=== PATIENT | female | born 1965 | race Caucasian/White ===

== ENCOUNTER 2020-01-08 20:13 | Emergency (ER) | payer SELFPAY ==
[2020-01-08] MEDS ORDERED: AMOXICILLIN TR/POT CLAVULANATE 875-125 MG TAB PO ONE (20:56)
[2020-01-08] MEDS ORDERED: DIPH/PERTUSS(ACELL)/TETANUS VAC/PF 0.5 ML SYR (>=10YO) IM ONE (20:56)
[2020-01-08] MEDS ORDERED: OXYCODONE-ACETAMINOPHEN 5-325 MG TABLET PO ONE ×2 (20:57→23:41)
--- NOTE | 2020-01-08 21:01 | ER Document Report ---
ED Medical Screen (RME) - General Chief Complaint: Dog Bite Stated Complaint: DOG BITES Time Seen by Provider: 01/08/20 20:52 Notes: HPI: 54-year-old female presenting for evaluation of multiple dog bites. States that her neighbor has 5 or 6 pimples and they got into her yard and attacked her tonight. Does not know if the dogs are up-to-date on vaccinations. States that she is not sure if she is up-to-date on her tetanus vaccination. Patient complains of pain from the dog bites. PHYSICAL EXAMINATION: Patient with multiple dog bites noted. Patient has superficial puncture wounds to the palmar aspects of the left and right hand. There is a superficial wound on the distal dorsal left forearm. There is a superficial wound to the left shoulder. Superficial wound to the left elbow. There is a deep wound on the right forearm near the elbow. There is a deep triangular flap type laceration over the anterior proximal right tibia I have greeted and performed a rapid initial assessment of this patient. A comprehensive ED assessment and evaluation of the patient, analysis of test results and completion of medical decision making process will be conducted by an additional ED providers. - Related Data Allergies/Adverse Reactions: No Known Allergies Allergy (Unverified 01/08/20 20:52) Physical Exam - Vital signs Vitals: Temp Pulse Resp BP Pulse Ox 98.0 F 70 18 138/98 H 100 01/08/20 20:23 01/08/20 20:23 01/08/20 20:23 01/08/20 20:23 01/08/20 20:23 Course - Vital Signs Vital signs: Temp Pulse Resp BP Pulse Ox 98.0 F 70 18 138/98 H 100 01/08/20 20:23 01/08/20 20:23 01/08/20 20:23 01/08/20 20:23 01/08/20 20:23
--- NOTE | 2020-01-08 22:10 | RADIOLOGY REPORT (SQ) ---
2 VIEWS RIGHT TIBIA/FIBULA HISTORY: Dog bite. COMPARISON: None. FINDINGS: There is focal soft tissue swelling and laceration along the anterior aspect of the proximal lower leg. No fracture or foreign body is seen. There is no cortical erosion or periosteal reaction to suggest acute osteomyelitis., IMPRESSION: Soft tissue swelling and laceration of the proximal leg but without fracture or foreign body.
--- NOTE | 2020-01-08 22:18 | RADIOLOGY REPORT (SQ) ---
EXAM DESCRIPTION: XR HAND 3 VIEWS BILATERAL COMPLETED DATE/TME: 01/08/2020 20:57 CLINICAL HISTORY: 54 years, Female, dog bite COMPARISON: None. NUMBER OF VIEWS: 6 views of both hands TECHNIQUE: Oblique, lateral, and frontal radiographs of both hands were acquired LIMITATIONS: None. FINDINGS: Mild DIP joint arthrosis is noted about the left third digit. Otherwise, remaining visualized osseous structures are normal bilaterally without underlying acute fracture or dislocation. No retained radiopaque foreign body or significant soft tissue swelling. IMPRESSION: No acute osseous anomaly or retained radiopaque foreign body. copyright 2010 [employer]- All Rights Reserved
--- NOTE | 2020-01-08 22:20 | RADIOLOGY REPORT (SQ) ---
EXAM DESCRIPTION: XR FOREARM 2 VIEWS BILATERAL COMPLETED DATE/TME: 01/08/2020 20:57 CLINICAL HISTORY: 54 years, Female, dog bite COMPARISON: None. NUMBER OF VIEWS: 4 TECHNIQUE: Frontal and lateral radiographs of both forearms were acquired. LIMITATIONS: None. FINDINGS: Diffuse soft tissue swelling and subcutaneous gas is noted about the soft tissues along the dorsal/lateral aspect of the mid to proximal forearm on the right extending into the elbow. No underlying retained radiopaque foreign body is evident. There is suspected remote deformity involving the distal humerus on the right. Remaining visualized osseous structures appear normal without acute fracture or dislocation. IMPRESSION: Diffuse soft tissue swelling about the dorsal/lateral aspect of the mid to distal forearm extending to the lateral aspect of the elbow. No underlying acute fracture or dislocation. No definite retained radiopaque foreign body. copyright 2010 [employer]- All Rights Reserved
[2020-01-08] MEDS ORDERED: LIDOCAINE 4% CREAM 5 GM TUBE TP ONE (22:31)
[2020-01-08] MEDS ORDERED: LIDOCAINE 1%/EPINEPHRINE INJ 20 ML VIAL INJ ONE (22:53)
--- NOTE | 2020-01-08 23:02 | ER Document Report ---
ED Animal Bite - General Chief Complaint: Dog Bite Stated Complaint: DOG BITES Time Seen by Provider: 01/08/20 20:52 Primary Care Provider: [facility] [Provider Group] - 01/10/20 Mode of Arrival: Ambulatory Information source: Patient Notes: Patient states that her neighbor's dog came into her yard and she was walking the dog back to its home. Patient states that another dog came out of the house and started to attack her. She states then the first dog she brought back to the neighbors house then started to attack her as well. Patient states that her dog was hanging from her right arm. Patient with multiple puncture wound lacerations to bilateral upper extremities. Patient with large puncture wound to right elbow area. Patient with laceration to anterior aspect of the right lower leg. Patient is uncertain when her last tetanus immunization was. - HPI Location of injury: LUE, RUE, RLE Severity of injury: Scratched, Bitten Onset: Just prior to arrival Quality of pain: Sharp Pain Level: 5 Context of attack: "Unprovoked" attack, Approached animal, Entered animal's domain Type of animal: Dog Animal's immunizations: Unknown Animal captured or known: Yes Animal control form completed: Yes - Related Data Allergies/Adverse Reactions: No Known Allergies Allergy (Unverified 01/08/20 20:52) Past Medical History - General Information source: Patient - Social History Smoking Status: Current Every Day Smoker Frequency of alcohol use: None Drug Abuse: None 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 denies: Chest pain Respiratory: No symptoms reported Gastrointestinal: No symptoms reported. denies: Nausea, Vomiting Genitourinary: No symptoms reported Female Genitourinary: No symptoms reported Musculoskeletal: Joint pain - Elbow pain Skin: Other - Puncture wound lacerations to bilateral upper extremities, laceration to right lower extremity Hematologic/Lymphatic: No symptoms reported Neurological/Psychological: No symptoms reported Physical Exam - Vital signs Vitals: Temp Pulse Resp BP Pulse Ox 98.0 F 70 18 138/98 H 100 01/08/20 20:23 01/08/20 20:23 01/08/20 20:23 01/08/20 20:23 01/08/20 20:23 - General General appearance: Appears well, Alert In distress: None - HEENT Head: Normocephalic, Atraumatic Eyes: Normal Conjunctiva: Normal Nasal: Normal Mouth/Lips: Normal Neck: Normal - Respiratory Respiratory status: No respiratory distress Chest status: Nontender Breath sounds: Normal. No: Rales, Rhonchi, Stridor, Wheezing Chest palpation: Normal - Cardiovascular Rhythm: Regular Heart sounds: S1 appreciated, S2 appreciated Pulses: Normal: Radial - Back Back: Normal - Extremities General upper extremity: Tender - Right elbow tenderness, tenderness to right fourth finger, Normal ROM General lower extremity: Tender - Anterior aspect of right lower leg, Normal ROM - Neurological Neuro grossly intact: Yes Orientation: AAOx4 Rafael Coma Scale Eye Opening: Spontaneous [place] Coma Scale Verbal: Oriented Rafael Coma Scale Motor: Obeys Commands [place] Coma Scale Total: 15 - Psychological Associated symptoms: Normal affect, Normal mood - Skin Skin Temperature: Warm Skin Moisture: Dry Skin irregularity: Laceration - Superficial 1 cm laceration to left shoulder, left elbow, palmar surface of left hand, 0.5 cm laceration to the right wrist, gaping 5 cm laceration to anterior right lower leg, 2 cm puncture wound lacerati on to right elbow area, patient with 2 cm circular area of avulsed tissue to lateral aspect of the right elbow., other - Subcutaneous emphysema surrounding puncture wound to the right proximal forearm Irregularity with: Swelling, Tenderness Course - Re-evaluation Re-evalutation: 01/08/20 23:[address] zimmerman regarding patient's radiology reports and plan of care. 01/09/20 00:11 Patient with gaping laceration to the anterior aspect of the lower leg, wounds were copiously irrigated and cleansed. Decision was made to loosely approximate wound and place a Brandi drain into the leg laceration using shared decision- making. Patient encouraged to return immediately for any worsening symptoms such as redness, purulent drainage, increased pain, fever or any concerning signs of infection. Patient advised that she will need to return in 48 hours for wound recheck. Patient encouraged to follow-up with orthopedics on Friday for further evaluation of her wounds. - Vital Signs Vital signs: Temp Pulse Resp BP Pulse Ox 98.0 F 70 18 138/98 H 100 01/08/20 20:23 01/08/20 20:23 01/08/20 20:23 01/08/20 20:23 01/08/20 20:23 - Diagnostic Test Radiology reviewed: Image reviewed, Reports reviewed Procedures - Laceration/Wound Repair Right Leg Wound length (cm): 5 Wound's Depth, Shape: Irregular, Flap Laceration pre-procedure: Betadine prep applied, Shur-Clens applied Anesthetic type: 1% Lidocaine w/epi Volume Anesthetic (mLs): 2 Wound explored: No foreign body removed Irrigated w/ Saline (mLs): 2,500 Wound Repaired With: Sutures Suture Size/Type: 4:0, Nylon Number of Sutures: 2 - Em[place] drain placed in wound cavity Layer Closure?: No Post-procedure wound care: Sterile dressing applied Post-procedure NV exam normal: Yes Complications: No Adult Front & Back picture: 1 - Irregular flap laceration Discharge - Discharge Clinical Impression: Multiple puncture wounds, Animal bite Leg laceration Qualifiers: Encounter type: initial encounter Laterality: right Qualified Code(s): S81.811A - Laceration without foreign body, right lower leg, initial encounter Laceration of right forearm Qualifiers: Encounter type: initial encounter Qualified Code(s): S51.811A - Laceration without foreign body of right forearm, initial encounter Condition: Stable Disposition: HOME, SELF-CARE Instructions: Animal Bites ([facility]), Augmentin ([facility]), Oral Narcotic Medication ([facility]), Prophylactic Antibiotic ([facility]), Tetanus Immunization Given ([facility]) Additional Instructions: Return immediately for any new or worsening symptoms Followup with your primary care provider, call tomorrow to make a followup appointment Return in 2 days for wound recheck. Return sooner for any worsening of symptoms such as increased pain, fever, increased swelling, redness or any concerning symptoms. Follow-up with orthopedics for further evaluation, call Friday for an appointment Follow-up with animal control regarding the immunization status of the animals. If they determined that you need to a rabies vaccination series, you would return here for that. Prescriptions: Amoxicillin/Potassium Clav [Augmentin 875-125 Tablet] 1 tab PO BID #20 tab Naproxen [Naprosyn 250 Nmg Tablet] 1 tab PO BID #14 tablet Hydrocodone/Acetaminophen [[place] 5-325 mg Tablet] 1 tab PO Q6 PRN #15 tablet PRN Reason: Forms: Return to Work Referrals: [facility] [Provider Group] - 01/10/20
[2020-01-09] MEDS ORDERED: AMOXICILLIN TR/POT CLAVULANATE 875-125 MG TAB PO ONE (00:13)
[2020-01-09] MEDS ORDERED: DIPH/PERTUSS(ACELL)/TETANUS VAC/PF 0.5 ML SYR (>=10YO) IM ONE (00:13)
[2020-01-09 02:08] VITALS: BP 148/97
== END 2020-01-09 01:15 | disposition home or self-care (01) ==
LOC: ER 20:13
DX: S81.851A Open bite, right lower leg, initial encounter (principal); S51.051A Open bite, right elbow, initial encounter; S51.851A Open bite of right forearm, initial encounter; S61.551A Open bite of right wrist, initial encounter; S40.272A Other superficial bite of left shoulder, initial encounter; S60.572A Other superficial bite of hand of left hand, initial encounter; W54.0XXA Bitten by dog, initial encounter; Y93.89 Activity, other specified; Y92.009 Unspecified place in unspecified non-institutional (private) residence as the place of occurrence of the external cause; Z23 Encounter for immunization; F17.200 Nicotine dependence, unspecified, uncomplicated
CPT/HCPCS: 99284; 90471; 73590; 73090; 73130; 90715; 12002; J3490 ×3

== ENCOUNTER 2020-01-10 19:09 | Emergency (ER) | payer SELFPAY ==
[2020-01-10] MEDS ORDERED: AMPICILLIN SOD/SULBACTAM 3 GM VIAL IV ONE (20:20)
--- NOTE | 2020-01-10 20:22 | ER Document Report ---
ED Medical Screen (RME) - General Chief Complaint: Skin Problem Stated Complaint: VOMITNG Time Seen by Provider: 01/10/20 20:06 - HPI Notes: 01/10/20 20:20 54-year-old female to the emergency department with complaints of wanting a wound check for dog bites to her right arm and right lower leg. She was bit by 2 pit bulls her neighbors 2 days ago. She states animal control can but she does not think the animals are up-to-date on their rabies vaccinations. she states that she had a drain put in her lower leg. She states that She did not get her antibiotics filled. She has started to feel nauseated and queasy. She does not think that she has had a fever. On brief medical screening exam. There are several dog bites. In the lower leg there is a dog bite with a Brandi drain. There is erythema and warmth above the dog bite to suggest cellulitis. To the right forearm there is also a streaking cellulitis to the volar/medial aspect of the arm. Is very tender to palpation. I performed a brief medical screening exam on the patient determined that the patient needs further evaluation and management by main side provider. I have placed initial orders to help expedite care. - Related Data Allergies/Adverse Reactions: No Known Allergies Allergy (Unverified 01/08/20 20:52) Home Medications: subutex, iibuprofen, amoxicillin, bp med Past Medical History - Immunizations Hx Diphtheria, Pertussis, Tetanus Vaccination: No Physical Exam - Vital signs Vitals: Temp Pulse Resp BP Pulse Ox 98.6 F 86 18 143/92 H 96 01/10/20 19:18 01/10/20 19:18 01/10/20 19:18 01/10/20 19:18 01/10/20 19:18 Course - Vital Signs Vital signs: Temp Pulse Resp BP Pulse Ox 98.6 F 86 18 143/92 H 96 01/10/20 19:18 01/10/20 19:18 01/10/20 19:18 01/10/20 19:18 01/10/20 19:18
--- NOTE | 2020-01-10 21:10 | RADIOLOGY REPORT (SQ) ---
EXAM DESCRIPTION: X-ray, two views of the right forearm CLINICAL HISTORY: 54 years Female, infected dog bites COMPARISON: None. FINDINGS: Air is seen in the soft tissues involving the distal upper arm extending into the anterior and posterior aspects of the forearm. No radiopaque foreign body. No underlying fracture. There is degenerative osteophyte formation at the elbow joint. IMPRESSION: Scattered air in the soft tissues of the distal upper arm and proximal forearm. No radiopaque foreign body. No fracture.
--- NOTE | 2020-01-10 21:23 | RADIOLOGY REPORT (SQ) ---
2 VIEWS RIGHT TIBIA/FIBULA HISTORY: Infected dog bites. COMPARISON: 01/08/2020 FINDINGS: Again seen is focal soft tissue swelling with subcutaneous air probably within the proximal soft tissues of the right leg. Overlying bandage material is noted. No foreign body or fracture. There is no cortical erosion or periosteal reaction to suggest acute osteomyelitis. IMPRESSION: Soft tissue swelling and air within the proximal right leg, which may represent deep soft tissue infection. Consider contrast-enhanced cross-sectional imaging if there is concern for intramuscular abscess or.
[2020-01-10 21:32] LABS: ABSOLUTE EOSINOPHILS # (AUTO) 0.1 10^3/uL (0.0-0.6); ABSOLUTE LYMPHOCYTES (AUTO) 1.4 10^3/uL (0.5-4.7); ABSOLUTE MONOCYTES (AUTO) 0.7 10^3/uL (0.1-1.4); ABSOLUTE NEUT (AUTO) 5.2 10^3/uL (1.7-8.2); BASOPHILS % (AUTO) 0.4 % (0-2); EOSINOPHILS % (AUTO) 0.9 % (0-6); HEMATOCRIT 39.6 % (36.0-47.0); HEMOGLOBIN 13.5 g/dL (12.0-15.5); LYMPHOCYTES % (AUTO) 18.7 % (13-45); MEAN CORPUSCULAR HEMOGLOBIN 31.5 pg (27.0-33.4); MEAN CORPUSCULAR HGB CONC 34.1 g/dL (32.0-36.0); MEAN CORPUSCULAR VOLUME 92 fl (80-97); MONOCYTES % (AUTO) 9.1 % (3-13); PLATELET COUNT 309 10^3/uL (150-450); RED BLOOD COUNT 4.29 10^6/uL (3.72-5.28); RED CELL DISTRIBUTION WIDTH 13.3 % (11.5-14.0); SEGMENTED NEUTROPHILS % (AUTO) 70.9 % (42-78); TOTAL CELLS COUNTED % (AUTO) 100 %; WHITE BLOOD COUNT 7.3 10^3/uL (4.0-10.5)
[2020-01-10 21:48] LABS: ALBUMIN 4.6 g/dL (3.5-5.0); ALKALINE PHOSPHATASE 57 U/L (38-126); ANION GAP 6 (5-19); ASPARTATE AMINO TRANSFERASE 25 U/L (14-36); BILIRUBIN,DIRECT 0.3 mg/dL (0.0-0.4); BILIRUBIN,TOTAL 0.5 mg/dL (0.2-1.3); BLOOD UREA NITROGEN 19 mg/dL (7-20); CARBON DIOXIDE 31 mmol/L (22-30); CHLORIDE 100 mmol/L (98-107); GLUCOSE 95 mg/dL (75-110); TOTAL PROTEIN 7.4 g/dL (6.3-8.2)
--- NOTE | 2020-01-11 00:38 | ER Document Report ---
ED General - General Chief Complaint: Skin Problem Stated Complaint: VOMITNG Time Seen by Provider: 01/10/20 20:06 - HPI Notes: 54-year-old female presents for wound check. Patient was attacked by her neighbor's pit bulls over the weekend, sustained multiple areas of injury. She was told to come back today for a wound check. She was not able to get the Augmentin filled, this is because her friend took the prescription to a pharmacy, however the pharmacy did not participate with good Rx, the friend accidentally left the prescription there. Patient states that she has a small area of redness to her right leg, concerned that is where the tape has been. She has been ambulatory without issue. She states that she had some feelings of nausea earlier today, however this has subsided. States that animal control is involved, the 5 pupils are reportedly undergoing a home quarantine. States that she has been in contact with animal control multiple times. - Related Data Allergies/Adverse Reactions: No Known Allergies Allergy (Unverified 01/08/20 20:52) Home Medications: subutex, iibuprofen, amoxicillin, bp med Past Medical History - General Information source: Patient - Social History Smoking Status: Current Every Day Smoker Family History: Reviewed & Not Pertinent - Immunizations Hx Diphtheria, Pertussis, Tetanus Vaccination: No Review of Systems - Review of Systems Constitutional: denies: Fever EENT: No symptoms reported Cardiovascular: No symptoms reported Respiratory: No symptoms reported Gastrointestinal: denies: Abdominal pain Genitourinary: No symptoms reported Musculoskeletal: Joint pain - Left hand Hematologic/Lymphatic: See HPI Neurological/Psychological: No symptoms reported Physical Exam - Vital signs Vitals: Temp Pulse Resp BP Pulse Ox 98.6 F 86 18 143/92 H 96 01/10/20 19:18 01/10/20 19:18 01/10/20 19:18 01/10/20 19:18 01/10/20 19:18 - General General appearance: Appears well, Alert In distress: None Notes: Eating grapes during examination - HEENT Head: Normocephalic, Atraumatic Extraocular movements intact: Yes Pupils: PERRL - Respiratory Respiratory status: No respiratory distress - Cardiovascular Rhythm: Regular Heart sounds: Normal auscultation - Abdominal Inspection: No: Obese - Extremities Notes: Multiple areas of dog bites Right proximal forearm has healing wound, no surrounding erythema, no drainage. The right elbow is non-tender, has full range of motion Superficial wound to thenar aspect of left hand, no erythema Wound present to proximal right lower leg. There are [address] about a V-shaped wound. There is a Brandi drain present, proximal suture appears to be going through this, there is no drainage. She has surrounding ecchymosis and area of contusion. There is no expressible purulence or drainage. No tenderness. There is a localized aspect of erythema which is remote from the wo und. The wound itself does not have any surrounding erythema or "streaking cellulitis". The right knee has no tenderness to palpation, no crepitance. There is full range of motion of the right knee. - Neurological Neuro grossly intact: Yes Cognition: Normal Orientation: AAOx4 - Psychological Associated symptoms: Normal affect - Skin Skin Temperature: Warm Course - Re-evaluation Re-evalutation: 54-year-old female sustained multiple dog bites 3 days ago, she is here for a wound check. The wounds to her upper extremities appear to be well hearing, there is no current evidence of infection. The wound to her right proximal bañuelos has 2 sutures and a Brandi drain in place. I question the efficacy of this Brandi drain, however feel that unable to remove currently as it looks like 1 of the sutures is actually going through it. The wound has ecchymosis, however overall does not appear to be overtly infected. There is no streaking erythema or current evidence of cellulitis. There is no expressible drainage from the wound. Patient has been weightbearing without issue. She is afebrile. She has no joint tenderness. As part of the triage process she had labs done. She has no leukocytosis or left shift, no elevation of lactic acid. She had x-rays performed which showed soft tissue gas, present on previous films from prior ED visit, appear to be improved. She did receive a dose of Unasyn. I rewrote for Augmentin, discussed importance of filling this, patient verbalized understanding. I have advised her to return in the emergency department in 2 to 3 days for another wound recheck because she does not have a primary care doctor, can consider removing the sutures/Ronceverte drain at that time. Patient was given return precautions, stable at time of discharge. - Vital Signs Vital signs: Temp Pulse Resp BP Pulse Ox 97.9 F 64 14 146/79 H 100 01/11/20 01:33 01/11/20 01:33 01/11/20 01:33 01/11/20 01:33 01/11/20 01:33 - Laboratory Result Diagrams: 01/10/20 21:16 01/10/20 21:16 Laboratory results interpreted by me: 01/10/20 01/10/20 21:16 21:16 Carbon Dioxide 31 H Est GFR (MDRD) Non-Af 58 L Lactic Acid 0.6 L - Diagnostic Test Radiology reviewed: Image reviewed, Reports reviewed Discharge - Discharge Clinical Impression: Dog bite of multiple sites Condition: Stable Disposition: HOME, SELF-CARE Additional Instructions: Please begin course of Augmentin. Return to the emergency department in 2 to 3 days for a wound recheck and to see if the sutures are ready to be removed. Return to the emergency department for any worsening or concerning symptoms. Prescriptions: Amoxicillin/Potassium Clav [Augmentin 875-125 Tablet] 1 tab PO BID #20 tab
[2020-01-11 01:38] VITALS: BP 146/79
== END 2020-01-11 01:40 | disposition home or self-care (01) ==
LOC: ER 19:09
DX: S51.851A Open bite of right forearm, initial encounter (principal); S81.851A Open bite, right lower leg, initial encounter; W54.0XXA Bitten by dog, initial encounter; T36.0X6A Underdosing of penicillins, initial encounter; T36.1X6A Underdosing of cephalosporins and other beta-lactam antibiotics, initial encounter; Z91.128 Patient's intentional underdosing of medication regimen for other reason; Z91.14 Patient's other noncompliance with medication regimen; M25.541 Pain in joints of right hand; Z79.899 Other long term (current) drug therapy; Z79.1 Long term (current) use of non-steroidal anti-inflammatories (NSAID); Z79.891 Long term (current) use of opiate analgesic
CPT/HCPCS: 99284; 96374; 36415; 87040; 83605; 85025; 80053; 73090; 73590; J0295

== ENCOUNTER 2020-01-13 20:41 | Emergency (ER) | payer SELFPAY ==
[2020-01-13] MEDS ORDERED: MUPIROCIN 2% OINTMENT 22 GM TP ONE (21:16)
--- NOTE | 2020-01-13 21:18 | ER Document Report ---
HPI - HPI Patient complains to provider of: wound recheck Time Seen by Provider: 01/13/20 21:02 Onset: Last week Onset/Duration: Better Quality of pain: Achy Pain Level: 2 Context: Patient was bit by 2 dogs last week and had a leg laceration with a drain placed and sutures placed. Patient is here for a wound recheck. Patient states she has been taking her antibiotics as prescribed and changing dressings daily. Patient denies any purulent drainage or fever. Associated Symptoms: Other - Tenderness to dog bite wound. denies: Fever Exacerbated by: Movement Relieved by: Denies Similar symptoms previously: No Recently seen / treated by doctor: Yes - ROS ROS below otherwise negative: Yes Systems Reviewed and Negative: Yes All other systems reviewed and negative - CONSTITUTIONAL Constitutional: DENIES: Fever, Chills - NEURO Neurology: DENIES: Weakness - MUSCULOSKELETAL Musculoskeletal: REPORTS: Extremity pain - DERM Skin Color: Normal Skin Problems: Laceration, Puncture Wound Past Medical History - General Information source: Patient - Social History Smoking Status: Current Every Day Smoker Frequency of alcohol use: None Drug Abuse: None Occupation: [employer] Lives with: Alone Family History: Reviewed & Not Pertinent - Medical History Medical History: Negative Surgical Hx: Negative - Immunizations Hx Diphtheria, Pertussis, Tetanus Vaccination: No Vertical Provider Document - CONSTITUTIONAL Agree With Documented VS: Yes Exam Limitations: No Limitations General Appearance: WD/WN, No Apparent Distress - HEENT HEENT: Atraumatic, Normocephalic - NECK Neck: Normal Inspection, Supple - RESPIRATORY Respiratory: Breath Sounds Normal, No Respiratory Distress - CARDIOVASCULAR Cardiovascular: Regular Rate, Regular Rhythm Pulses: Normal: Radial - MUSCULOSKELETAL/EXTREMETIES Musculoskeletal/Extremeties: MAEW - NEURO Level of Consciousness: Awake, Alert, Appropriate Motor/Sensory: No Motor Deficit - DERM Integumentary: Warm, Dry, Laceration - Flap laceration to anterior aspect of right lower leg with minimal erythema surrounding wound edges. 2 sutures intact with drain in place. Puncture wound laceration to right proximal forearm healing with minimal serous drainage to dressing, no surrounding erythema Course - Re-evaluation Re-evalutation: 01/13/20 21:34 Sutures removed to the right lower leg as well as the drain. Patient educated o n continued wound care and encouraged to complete her course of antibiotics at this time. Patient encouraged to return immediately for any fever, purulent drainage, increased swelling or pain. - Vital Signs Vital signs: Temp Pulse Resp BP Pulse Ox 98.1 F 69 18 150/97 H 100 01/13/20 20:45 01/13/20 20:45 01/13/20 20:45 01/13/20 20:45 01/13/20 20:45 Discharge - Discharge Clinical Impression: Dog bite of multiple sites, Animal bite, Multiple puncture wounds, Encounter for wound re-check Laceration of right forearm Qualifiers: Encounter type: initial encounter Qualified Code(s): S51.811A - Laceration without foreign body of right forearm, initial encounter Leg laceration Qualifiers: Encounter type: initial encounter Laterality: right Qualified Code(s): S81.811A - Laceration without foreign body, right lower leg, initial encounter Condition: Stable Disposition: HOME, SELF-CARE Instructions: Antibiotic Ointment Protection ([facility]), Dressing Instructions for Open Wounds ([facility]), Soap Cleansing ([facility]) Additional Instructions: Return immediately for any new or worsening symptoms: Fever, purulent drainage, increased redness, any concerning new symptoms Followup with your primary care provider, call tomorrow to make a followup appointment Continue you taking your antibiotics as previously prescribed Referrals: [facility] [Provider Group] - Follow up as needed
[2020-01-13 21:43] VITALS: BP 163/105
== END 2020-01-13 21:43 | disposition home or self-care (01) ==
LOC: ER 20:41
DX: S81.851D Open bite, right lower leg, subsequent encounter (principal); S51.851D Open bite of right forearm, subsequent encounter; W54.0XXD Bitten by dog, subsequent encounter; F17.200 Nicotine dependence, unspecified, uncomplicated
CPT/HCPCS: 99283; J3490